=== PATIENT | female | born 1965 | race Caucasian/White ===

== ENCOUNTER 2016-09-03 00:11 | Emergency (ER) | payer MEDICAID ==
[2016-09-03 00:27] VITALS: RESP 14; O2SAT 91
--- NOTE | 2016-09-03 00:42 | EDPHY ---
H & P Time Seen by Provider: 09/03/16 00:20 HPI/ROS: CHIEF COMPLAINT: cat bite with cellulitis to right forearm HISTORY OF PRESENT ILLNESS: 51-year-old female was bitten by a cat approximately 24 hours ago. This is a wild, feral cat that she was assisting with at the local vet [facility], thus this would be considered provoked. They were catching the CT so as to spade them. However in the interim there has been ring of 8 cm ellipitcal, area of pinkness developing around the wound extending beyond the wound, itself being only 1 cm superficial laceration/ abrasion. She did happen to express a small bead of pus from the area, but now no longer able to do so. There has been no noticeable lymphangitis. Further she has not had any fever or systemic symptoms such as chills or the like. Unfortunately, while she has been immunized for tetanus 2014, she has never been immunized for rabies. Furthermore the cat is unavailable for testing as it has been released. She did have a CT by in March of 2015 from a domesticated cat of the neighbors. This CT had been immunized. Furthermore she received a tetanus shot at that time Past history suggests of a potential immune-compromised status as she has lupus , as well as fibromyalgia. They felt that the sick sinus syndrome was secondary to the lupus. P worse with movement of the wrist and hand Q achiness R right forearm S mild T developing over the course the day since the cat bite last night REVIEW OF SYSTEMS: Constitutional - no fevers or chills Musculoskeletal - no joint or muscle pain at rest though there was some tenderness in the right epitrochlear area with palpation. Integument - see above Neurological - no numbness, tingling, or paresthesias. Smoking Status: Former smoker Physical Exam: General Appearance: Alert, no distress. Afebrile. ENT: No icterus. Small crockett on face of small abrasions, from her scratching - a longterm phenom. Lungs: No respiratory distress. Extremities: Over the distal portion of the volar aspect of the right forearm there are several abrasions. Most distal 1 has a surrounding area of erythema that is 8 x 3 cm somewhat irregular. While there is some induration at the site I am unable to see or feel any fluctuance nor able to express any pus. There is no signs of any lymphangitis. While I do not appreciate any epitrochlear nodes she is tender with palpation in that vicinity. There is mild tenderness in the right axilla as well, again I do not palpate any adenopathy per se. Neurological: NV intact. Skin: Skin is intact. Warm and dry, no rashes. no lymphangitis. . Constitutional: Initial Vital Signs Temperature (C) 36.9 C 09/03/16 00:25 Heart Rate 84 09/03/16 00:25 Respiratory Rate 14 09/03/16 00:25 Blood Pressure 128/86 H 09/03/16 00:25 O2 Sat (%) 91 L 09/03/16 00:25 O2 Delivery Mode Room Air Allergies/Adverse Reactions: haloperidol [From Haldol] Allergy (Severe, Verified 05/16/12 15:22) haloperidol lactate [From Haldol] Allergy (Severe, Verified 05/16/12 15:22) codeine [Codeine] Allergy (Intermediate, Verified 05/16/12 15:22) Vomiting prochlorperazine edisylate [From Compazine] Allergy (Mild, Verified 05/16/12 15: 22) Other-Enter Comments prochlorperazine maleate [From Compazine] Allergy (Mild, Verified 05/16/12 15:22 ) Other-Enter Comments ondansetron [From Zofran (as hydrochloride)] Allergy (Verified 09/03/16 00:23) zolpidem tartrate [From Ambien] Allergy (Verified 05/16/12 15:22) Home Medications: Medication Instructions Recorded Dronabinol [Marinol 2.5 MG (*)] 10 mg PO QID 03/07/12 fentaNYL [Duragesic 100 MCG Patch 100 mcg TD Q48H 03/07/12 (*)] oxyCODONE IR [Oxycodone Ir (*)] 20 mg PO Q4 03/07/12 Amoxicillin/Clavulanate Pot 875 mg PO BID #20 tab 09/03/16 [Augmentin 875 MG TAB (*)] Medical Decision Making ED Course/Re-evaluation: I met with the nursing staff and discussed strategy of IM left deltoid vaccination along with local infiltration as well as gluteal administration of the remainder of the RIG. I discussed with the patient protocol for Augmentin treatment as well as antibiotic being taken with food as well as yogurt or probiotic effect. She was fitted with a right wrist splint to keep moving the arm. Furthermore I have advised her not to elevate for concern of escalating the exposure to potential rabies. She will need repeat vaccinations in days 3, 7, 14. I have set this up in order sheet for here however she may have that done at the [facility] instead. Wound recheck in approximately 36 hours, Monday, September 05 with her PCP or infectious disease, or here in the ER Differential Diagnosis: The differential diagnosis includes but is not limited to: Fracture, Sprain, Strain, Dislocation, Nerve injury, Contusion, cellulitis, rabies exposure, abscess - Data Points Medications Given: Discontinued Medications Amoxicillin/Clavulanate Potassium (Augmentin 875mg) 875 mg PO EDNOW ONE PRN Reason: Protocol Stop: 09/03/16 00:58 Last Admin: 09/03/16 01:45 Dose: 875 mg Oxycodone HCl (Oxycodone Ir) 10 mg PO EDNOW ONE Stop: 09/03/16 02:01 Last Admin: 09/03/16 02:00 Dose: 10 mg Rabies Immune Globulin (Imogam Rabies Ht 2ml) 1,620 unit IM .ONCE ONE Stop: 09/03/16 00:51 Last Admin: 09/03/16 01:25 Dose: 1,620 unit Rabies Vaccine Human Diploid Cell (Rabavert) 2.5 unit IM .ONCE ONE Stop: 09/03/16 00:51 Last Admin: 09/03/16 01:35 Dose: 2.5 unit Departure - Departure Disposition: Home, Routine, Self-Care Clinical Impression: Cellulitis of arm, right, Need for post exposure prophylaxis for rabies Cat bite of forearm Qualifiers: Encounter type: initial encounter Laterality: right Qualified Code(s): S51.851A - Open bite of right forearm, initial encounter Condition: Good Instructions: Rabies Vaccine (By injection), Rabies Immune Globulin (By injection), Animal Bite (ED), Cellulitis (ED) Additional Instructions: No need to elevate her arm We started you on the Augmentin. The next dose is due at approximately noon tomorrow. This should be taken with food. Do wear the splint at all times except for when you take a shower. Even at night. Wound check in 2 days time with her family physician on Monday. You will need further vaccinations on days 3, 7, 14 and 28. Referrals: Panda Solis MD [Medical Doctor] - As per Instructions Patient,NotPresent [Primary Care Provider] - 2-3 days without fail Prescriptions: Amoxicillin/Clavulanate Pot [Augmentin 875 MG TAB (*)] 875 mg PO BID #20 tab
[2016-09-03] MEDS ORDERED: RABIES VACC, HUMAN DIPLOID/PF 2.5 UNIT VIAL (RABAVERT) IM ONE (00:50)
[2016-09-03] MEDS ORDERED: RABIES IMMUNE GLOBULIN 300 UNIT/2 ML VIAL IM ONE (00:50)
[2016-09-03] MEDS ORDERED: AMOXICILLIN/CLAVULANATE POT 875/125 MG TAB PO ONE (00:57)
[2016-09-03] MEDS ORDERED: oxyCODONE IR 5 MG TAB PO ONE (02:00)
[2016-09-03] MEDS ORDERED: oxyCODONE IR 5 MG TAB ONE (02:06)
[2016-09-03 02:15] VITALS: BP 136/78; PULSE 88; TEMP 98.2
== END 2016-09-03 02:10 | disposition home or self-care (01) ==
LOC: CED 00:11
DX: S51.851A Open bite of right forearm, initial encounter (principal); L03.113 Cellulitis of right upper limb; Z23 Encounter for immunization; Z87.891 Personal history of nicotine dependence; W55.01XA Bitten by cat, initial encounter; Y92.89 Other specified places as the place of occurrence of the external cause

== ENCOUNTER 2016-09-06 10:47 | Emergency (ER) | payer MEDICAID ==
[2016-09-06 11:01] VITALS: BP 114/77; PULSE 73; RESP 16; TEMP 98.1; O2SAT 93
--- NOTE | 2016-09-06 11:11 | EDPHY ---
H & P Time Seen by Provider: 09/06/16 10:56 HPI/ROS: CHIEF COMPLAINT: Needs 2nd rabies vaccination HISTORY OF PRESENT ILLNESS: 51-year-old female returns to the emergency department for her 2nd vaccination for rabies. Her series was started on early Monday morning, 3 days ago. At that time she presented after being bitten by a feral cat. She had some erythema on right medial forearm. Patient's cellulitis is improving, however, she reports having diarrhea and nausea secondary to the Augmentin. No fevers or chills. No blood in the diarrhea. No abdominal pain. REVIEW OF SYSTEMS: See HPI PAST MEDICAL HISTORY: Noncontributory SOCIAL HISTORY: [ ] Smoking Status: Current every day smoker Constitutional: Initial Vital Signs Temperature (C) 36.7 C 09/06/16 10:49 Heart Rate 73 09/06/16 10:49 Respiratory Rate 16 09/06/16 10:49 Blood Pressure 114/77 09/06/16 10:49 O2 Sat (%) 93 09/06/16 10:49 O2 Delivery Mode Room Air Allergies/Adverse Reactions: haloperidol [From Haldol] Allergy (Severe, Verified 09/06/16 11:02) Other-Enter Comments haloperidol lactate [From Haldol] Allergy (Severe, Verified 09/06/16 11:02) Other-Enter Comments ondansetron [From Zofran (as hydrochloride)] Allergy (Severe, Verified 09/06/16 11:02) Other-Enter Comments zolpidem tartrate [From Ambien] Allergy (Severe, Verified 09/06/16 11:02) Other-Enter Comments codeine [Codeine] Allergy (Intermediate, Verified 09/06/16 11:02) Vomiting prochlorperazine edisylate [From Compazine] Allergy (Mild, Verified 09/06/16 11: 02) Other-Enter Comments prochlorperazine maleate [From Compazine] Allergy (Mild, Verified 09/06/16 11:02 ) Other-Enter Comments Home Medications: Medication Instructions Recorded Dronabinol [Marinol 2.5 MG (*)] 03/07/12 fentaNYL [Duragesic 100 MCG Patch 03/07/12 (*)] oxyCODONE IR [Oxycodone Ir (*)] 03/07/12 Amoxicillin/Clavulanate Pot 09/06/16 [Augmentin 875 MG TAB (*)] Lasix 09/06/16 MDM/Departure - Depart Referrals: REGULO FLETCHER,. [Primary Care Provider] - As per Instructions
[2016-09-06] MEDS ORDERED: RABIES VACC, HUMAN DIPLOID/PF 2.5 UNIT VIAL (RABAVERT) IM ONE (11:12)
--- NOTE | 2016-09-06 11:13 | EDPHY ---
ED Progress Note Narrative: Patient presents for her 2nd rabies vaccination. Order has been placed previously by Dr. Heredia. Patient has no other complaints other than some diarrhea from her Augmentin. Vaccination was provided. Plans were made for the patient to [facility]
== END 2016-09-06 11:28 | disposition home or self-care (01) ==
LOC: CED 10:47
DX: Z23 Encounter for immunization (principal)

== ENCOUNTER 2016-09-10 18:36 | Emergency (ER) | payer MEDICAID ==
[2016-09-10] MEDS ORDERED: RABIES VACC, HUMAN DIPLOID/PF 2.5 UNIT VIAL (RABAVERT) IM ONE (18:39)
[2016-09-10 19:08] VITALS: BP 114/79; PULSE 67; RESP 14; TEMP 98.6; O2SAT 97
== END 2016-09-10 19:10 | disposition home or self-care (01) ==
LOC: CED 18:36
DX: Z23 Encounter for immunization (principal)

== ENCOUNTER 2017-07-03 08:54 | Day surgery (SDC) | payer MEDICAID ==
[2017-07-03] MEDS ORDERED: ceFAZolin 2 GM/SWFI 2 GM/20 ML SYR IVP ONE (09:00)
[2017-07-03] MEDS ORDERED: diphenhydrAMINE 25 MG CAP PO ONE (09:00)
[2017-07-03] MEDS ORDERED: NS 1,000 ML IV ONE (09:00)
[2017-07-03] MEDS ORDERED: DIAZEPAM 5 MG TAB PO ONE (09:00)
[2017-07-03] MEDS ORDERED: BACITRACIN IRRIGATION/NS 50,000 UNITS/1,000 ML BTL IRR ONE (09:00)
--- NOTE | 2017-07-03 09:21 | CPEKG ---
Heart Rate: 62 RR Interval: 968 P-R Interval: 176 QRSD Interval: 82 QT Interval: 428 QTC Interval: 435 P Presho: 72 QRS Presho: 61 T Wave Presho: 45 EKG Severity - ABNORMAL ECG - EKG Impression: VENTRICULAR-PACED COMPLEXES Electronically Signed By: Awais Hernandez 03-Jul-2017 10:28:54
[2017-07-03 09:39] LABS: PLATELET COUNT 197 10^3/uL (150-400)
[2017-07-03 09:47] LABS: INR 1.12 (0.83-1.16); PROTIME(PATIENT) 14.6 SEC (12.0-15.0)
--- NOTE | 2017-07-03 10:07 | PDGENHP ---
History & Physical Chief Complaint: pacer at ANCA History of Present Illness: Patient is a 51 y/o female with history of SSS s/p PPM (now at ANCA), with Lupus and ongoing tobacco abuse, but no CAD, HTN, HLP, or DM, who had recent ANCA on pacer interrogation. Patient was scheduled for today's PPM gen change after ANCA was reached. Pertinent Past, Social, Family History: Lupus with chronic therapy ongoing. Tobacco abuse history. Relevant Physical Exam: Lungs clear to auscultation. Heart regular rate and rhythm Cardiorespiratory Assessment: No cardiovascular complaints. Pacer noted to be a ANCA with SSS as baseline rhythm
--- NOTE | 2017-07-03 10:08 | PDPROPOC ---
Sedation Plan of Care Sedation Plan of Care: vital signs stable, mental status noted, patient educated of risks, benefits, alternatives, patient can tolerate sedation ASA Classification: ASA 1 Planned drugs: fentanyl, midazolam Mallampati Score: Class 1 Mallampati Reference Image: Patient passed 3-3-2 rule?: Yes (poor dentition)
[2017-07-03] MEDS ORDERED: LIDOCAINE 1% 300 MG/30 ML SDV ONE (12:17)
[2017-07-03] MEDS ORDERED: LIDO/EPI 1% **for epidural** 30 ML SDV ONE (12:18)
[2017-07-03] MEDS ORDERED: MIDAZOLAM 2 MG/2 ML VIAL ONE ×3 (12:18→14:16)
[2017-07-03] MEDS ORDERED: BUPIVACAINE 0.5% 10 ML SDV ONE (12:18)
[2017-07-03] MEDS ORDERED: fentaNYL 100 MCG/2 ML INJ ONE ×2 (12:18→13:31)
--- NOTE | 2017-07-03 13:54 | SUROPNOTE ---
[facility] Operative Report - Surgery PROCEDURE: (1) FLUOROSCOPIC VIEW OF OLD GENERATOR (2) EXPLANTATION OF OLD GENERATOR (3) IMPLANTATION OF NEW GENERATOR INDICATION: (1) PACER AT [facility] PROCEDURE DETAILS: After consents were obtained, the patient was brought to the cardiac central lab technician and placed on the table in usual sterile fashion. Fluoroscopic views of the old generator were performed to localize the atrial and ventricular leads. Lidocaine was used for local anesthetic superior to the location of the old generator (along the old incision. The #12 blade was used for initial incision , then bovie was used for depth and breath. Cautery was used to control bleeding (minimal). Old generator was explanted and a raytech with bacitracin was placed in the pocket. Atrial lead was interrogated with following data Threshold of 0.9V at 0.4 ms and P waves of 3.1 mV. Imp was 409 Ohms. Ventricular lead was interrogated with the following data Threshold of 0.6V at 0.4 ms and R waves of 8.9 mV. Imp was 702 Ohms. Raytech was explanted and the pocket was inspected for haemostasis. The new generator was implanted, and given the consistency of the tissue, the device was sutured into place New device: Edora 8 [id number] with serial number [id number]. The pocket was closed with 2-0, 3-0, and 4-0. No complications were appreciated. Blood loss was <20 cc Pending interrogation in outpatient setting.
== END 2017-07-03 16:25 | disposition home or self-care (01) ==
LOC: FCATH 08:54
PROVIDERS: ATTEND Internal Medicine Cardiovascular Disease
PROC: 0JPT0PZ Removal of Cardiac Rhythm Related Device from Trunk Subcutaneous Tissue and Fascia, Open Approach (ICD-10-PCS; principal; 2017-07-03)
PROC: 0JH60PZ Insertion of Cardiac Rhythm Related Device into Chest Subcutaneous Tissue and Fascia, Open Approach (ICD-10-PCS; principal; 2017-07-03)
DX: Z45.018 Encounter for adjustment and management of other part of cardiac pacemaker (principal)
CPT/HCPCS: C1785; J0690; J1200; J2250; J3010

== ENCOUNTER 2018-09-01 13:04 | Emergency (ER) | payer MEDICAID ==
[2018-09-01 13:24] VITALS: BP 118/86
--- NOTE | 2018-09-01 13:42 | EDPHY ---
H & P Stated Complaint: one week of pain in ribs /under arms + cough worse since last pm Time Seen by Provider: 09/01/18 13:13 HPI/ROS: Chief Complaint: Pain under right arm HPI: 53-year-old woman presenting with 1 week of pain underneath her right arm up into her armpit. Patient states she has been doing a lot of lifting of heavy boxes. Hurts when she moves. No shortness of breath. No cough. No fevers or chills. Does have a history of SLE and fibromyalgia, on chronic narcotic pain medicines. It does hurt to move her right arm. No numbness or weakness. No skin rash. ROS: 10 systems were reviewed and were negative except those elements noted in the HPI. PMH: SLE, fibromyalgia Social History: Positive smoking, no alcohol, no recreational drug use Family History: non-contributory Physical Exam: Gen: Awake, Alert, No Distress HEENT: Nose: no rhinorrhea Eyes: PERRLA, EOMI Mouth: Moist mucosa Neck: Supple, no JVD Chest: nontender, lungs clear to auscultation Heart: S1, S2 normal, no murmur Abd: Soft, non-tender, no guarding Back: no CVA tenderness, no midline tenderness Ext: no edema, non-tender, right axilla there are no masses. There is no erythema. She does have tenderness along the posterior musculature and trapezius reproducing her presenting complaint. She has full flexion and extension. She is able abduct in raise her arm above her head. No shoulder pain or deformity. No numbness or weakness. Skin: no rash Neuro: CN II-XII intact, Sensation grossly intact, Strength 5/5 in bilateral upper and lower extremities - Personal History Current Tetanus Diphtheria and Acellular Pertussis (TDAP): Yes Tetanus Vaccine Date: within 10 years - Medical/Surgical History Hx Asthma: No Hx Chronic Respiratory Disease: Yes Hx Diabetes: No Hx Cardiac Disease: Yes Hx Renal Disease: No Hx Cirrhosis: No Hx Alcoholism: No Hx HIV/AIDS: No Hx Splenectomy or Spleen Trauma: No Other PMH: SICK SINUS SYNDROME, RX W/PACEMAKER. FIBROMYALGIA,LUPUS,COPD, seizure disorder. cholecystectomy. hernia repair x 6. c section,. ovarian cystectomy fibroid tumorectomy - Social History Smoking Status: Heavy smoker Constitutional: Initial Vital Signs Temperature (C) 36.6 C 09/01/18 13:16 Heart Rate 68 09/01/18 13:16 Respiratory Rate 16 09/01/18 13:16 Blood Pressure 118/86 H 09/01/18 13:16 O2 Sat (%) 94 09/01/18 13:16 O2 Delivery Mode Room Air Allergies/Adverse Reactions: haloperidol [From Haldol] Allergy (Severe, Verified 09/01/18 13:25) Other-Enter Comments haloperidol lactate [From Haldol] Allergy (Severe, Verified 09/01/18 13:25) Other-Enter Comments ondansetron [From Zofran (as hydrochloride)] Allergy (Severe, Verified 09/01/18 13:25) Other-Enter Comments zolpidem tartrate [From Ambien] Allergy (Severe, Verified 09/01/18 13:25) Other-Enter Comments codeine [Codeine] Allergy (Intermediate, Verified 09/01/18 13:25) Vomiting prochlorperazine edisylate [From Compazine] Allergy (Mild, Verified 09/01/18 13: 25) Other-Enter Comments prochlorperazine maleate [From Compazine] Allergy (Mild, Verified 09/01/18 13:25 ) Other-Enter Comments Home Medications: Medication Instructions Recorded fentaNYL [Duragesic 100 MCG Patch 50 mcg Q3D 03/07/12 (*)] Lasix PRN 09/06/16 Fioricet (*) 09/01/18 MARINOL 09/01/18 Oxycodone HCl 09/01/18 Medical Decision Making ED Course/Re-evaluation: 53-year-old woman presenting with a right shoulder strain with pain in her posterior inferior axilla. There there is no mass or abscess. She is completely neurologically intact. No bony tenderness. Lung exam is normal. Chest wall is nontender. Symptoms consistent with a muscle strain. Will discharge with her usual pain regimen. She has a physical therapist that she sees. She will follow up with them for further evaluation. Departure - Departure Disposition: Home, Routine, Self-Care Clinical Impression: Muscle strain Condition: Good Instructions: Muscle Strain (ED) Additional Instructions: Follow up with primary care physician in 2-3 days for further evaluation. You may continue your usual pain medicine program. Referrals: VALENTINE RENDON [Primary Care Provider] - As per Instructions
== END 2018-09-01 13:47 | disposition home or self-care (01) ==
LOC: CED 13:04
DX: S46.911A Strain of unspecified muscle, fascia and tendon at shoulder and upper arm level, right arm, initial encounter (principal); M79.7 Fibromyalgia; F17.200 Nicotine dependence, unspecified, uncomplicated; X50.0XXA Overexertion from strenuous movement or load, initial encounter
CPT/HCPCS: 99282-ER